=== PATIENT | male | born 1955 | race Caucasian/White ===

== ENCOUNTER 2018-12-19 20:48 | Inpatient (IN) | payer MEDICARE, MEDICAID ==
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
[2018-12-20 00:44] VITALS: BP 114/64
[2018-12-20] MEDS: Sodium Chloride 0.9% 1,000 ML IV SCH (01:10)
[2018-12-20 05:49] LABS: % BASOPHILS 0.8 % (0.0-2.0); % EOSINOPHILS 4.5 % (0.0-5.0); % LYMPHOCYTES 23.9 % (20.0-50.0); % MONOCYTES 8.9 % (2.0-10.0); % NEUTROPHILS 61.9 % (40.0-80.0); BASOPHILE ABSOLUTE 0.1 Th/cumm (0-0.2); EOSINOPHILE ABSOLUTE 0.4 Th/cmm (0.1-0.4); HEMATOCRIT 36.3 % (41.0-60); HEMOGLOBIN 12.2 gm/dL (12-16); LYMPHOCYTE ABSOLUTE 2.2 Th/cmm (1.5-3.0); MEAN CELL VOLUME 96.1 fl (80-99); MEAN CORPUSCULAR HEMOGLOBIN 32.2 pg (26.0-30.0); MEAN CORPUSCULAR HGB CONC 33.5 pg (28.0-36.0); MEAN PLATELET VOLUME 8.1 fl; MONOCYTE ABSOLUTE 0.8 Th/cmm (0.3-1.0); NEUTROPHILE ABSOLUTE 5.9 Th/cmm (1.8-8.0); PLATELET COUNT 329 Th/cmm (150-400); RED BLOOD COUNT 3.78 Mil/cmm (4.30-5.70); WHITE BLOOD COUNT 9.4 Th/cmm (4.8-10.8)
[2018-12-20 06:08] LABS: ANION GAP 12.2 (7.0-16.0); BUN - UREA NITROGEN 14 mg/dL (7-25); CALCIUM SERUM 8.4 mg/dL (8.6-10.3); CARBON DIOXIDE 25.6 mEq/L (21.0-31.0); CHLORIDE 102 mEq/L (98-107); CREATININE - SERUM 0.6 mg/dL (0.7-1.3); GFR AFRICAN-AMERICAN > 60.0 ml/min (>90); GFR NON AFRICAN-AMERICAN > 60.0 ml/min; GLUCOSE 130 mg/dL (70-105); POTASSIUM SERUM 3.8 mEq/L (3.5-5.1); SODIUM SERUM 136 mEq/L (136-145)
[2018-12-20] MEDS ORDERED: INSULIN ASPART SLIDING SCALE 100 UNITS/ML UNIT SUBQ SCH (07:30)
--- NOTE | 2018-12-20 09:45 | Diagnostic Imaging Report ---
Right shoulder (2 views) HISTORY: Pain, trauma No acute abnormalities. No fractures. No dislocation. Hypertrophic degenerative changes noted about the acromioclavicular joint. IMPRESSION: 1. Somewhat limited exam due to difficulty in patient positioning and cooperation 2. No definite acute abnormalities 3. Degenerative changes
[2018-12-20] MEDS ORDERED: Fleet Enema 135 mL RC PRN (10:16)
[2018-12-20] MEDS ORDERED: Magnesium Hydroxide (MOM) 30 mL UDC PO PRN (10:16)
[2018-12-20] MEDS ORDERED: INSULIN HUMAN REGULAR 100 UNITS/ML UNIT SUBQ SCH (11:30)
[2018-12-20] MEDS: APAP/Codeine 300 mg/30 mg Tab PO PRN ×2 (11:33→20:29)
[2018-12-20] MEDS ORDERED: VTE Chemical Prophylaxis Screen/Admission MC PRN (12:34)
[2018-12-20] MEDS: INSULIN LISPRO 100 UNIT/ML VIAL SUBQ SCH ×2 (12:43→17:22)
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
[2018-12-20] MEDS ORDERED: FLURANDRENOLIDE TP SCH (17:00)
[2018-12-20] MEDS ORDERED: CICLOPIROX 0.77% TP SCH (17:00)
[2018-12-20] MEDS: Insulin Glargine 100 units/ml 10ml Vial SUBQ SCH (17:18)
[2018-12-20] MEDS: Atorvastatin Calcium 10 MG TAB PO SCH (20:29)
[2018-12-20] MEDS ORDERED: GLUCAGON HCl 1 MG KIT IM PRN (20:47)
[2018-12-20] MEDS ORDERED: Dextrose 50% 50 mL Abboject IVP PRN (20:47)
[2018-12-20] MEDS: INSULIN LISPRO SLIDING SCALE 100 UNITS/ML UNIT SUBQ SCH (21:00)
[2018-12-21] MEDS: APAP/Codeine 300 mg/30 mg Tab PO PRN (04:43)
[2018-12-21 06:41] LABS: % BASOPHILS 0.7 % (0.0-2.0); % EOSINOPHILS 4.4 % (0.0-5.0); % LYMPHOCYTES 20.6 % (20.0-50.0); % MONOCYTES 6.5 % (2.0-10.0); % NEUTROPHILS 67.8 % (40.0-80.0); BASOPHILE ABSOLUTE 0.1 Th/cumm (0-0.2); EOSINOPHILE ABSOLUTE 0.3 Th/cmm (0.1-0.4); HEMATOCRIT 37.3 % (41.0-60); HEMOGLOBIN 12.2 gm/dL (12-16); LYMPHOCYTE ABSOLUTE 1.6 Th/cmm (1.5-3.0); MEAN CELL VOLUME 97.8 fl (80-99); MEAN CORPUSCULAR HEMOGLOBIN 31.9 pg (26.0-30.0); MEAN CORPUSCULAR HGB CONC 32.6 pg (28.0-36.0); MEAN PLATELET VOLUME 8.3 fl; MONOCYTE ABSOLUTE 0.5 Th/cmm (0.3-1.0); NEUTROPHILE ABSOLUTE 5.4 Th/cmm (1.8-8.0); PLATELET COUNT 343 Th/cmm (150-400); RED BLOOD COUNT 3.82 Mil/cmm (4.30-5.70); RED CELL DISTRIBUTION WIDTH 13.1 % (11.5-20.0); WHITE BLOOD COUNT 7.9 Th/cmm (4.8-10.8)
[2018-12-21 07:01] LABS: ALB/GLOB RATIO 0.9 (1.0-1.8); ALBUMIN 3.1 gm/dL (4.2-5.5); ALKALINE PHOSPHATASE 135 U/L (34-104); ANION GAP 12.1 (7.0-16.0); BILIRUBIN,TOTAL 0.6 mg/dL (0.3-1.0); BUN - UREA NITROGEN 16 mg/dL (7-25); CALCIUM SERUM 8.4 mg/dL (8.6-10.3); CARBON DIOXIDE 25.9 mEq/L (21.0-31.0); CHLORIDE 100 mEq/L (98-107); CREATININE - SERUM 0.6 mg/dL (0.7-1.3); GFR AFRICAN-AMERICAN > 60.0 ml/min (>90); GFR NON AFRICAN-AMERICAN > 60.0 ml/min; GLUCOSE 262 mg/dL (70-105); SGOT 57 U/L (13-39); SGPT/ALT 47 U/L (7-52); SODIUM SERUM 134 mEq/L (136-145); TOTAL PROTEIN,SERUM 6.7 gm/dL (6.0-8.3)
[2018-12-21] MEDS ORDERED: Morphine Sulfate 2 mg/mL 1mL Syr IVP PRN (08:04)
[2018-12-21] MEDS: Insulin Glargine 100 units/ml 10ml Vial SUBQ SCH ×2 (08:08→17:27)
[2018-12-21] MEDS: INSULIN LISPRO SLIDING SCALE 100 UNITS/ML UNIT SUBQ SCH ×4 (08:09→21:40)
[2018-12-21] MEDS ORDERED: Non-Formulary Item 1 EA (Cranberry [Cranberry] 425 MG) PO SCH (09:00)
[2018-12-21] MEDS ORDERED: Non-Formulary Item 1 EA (Amino Acids/Protein Hydrolys [Pro-Stat Awc Liquid] 30 ML) PO SCH (09:00)
[2018-12-21] MEDS: Aspirin 81mg Chewable Tab PO SCH (09:00)
[2018-12-21] MEDS: Oxybutynin Chloride 5 mg ER Tab PO SCH (09:00)
[2018-12-21] MEDS: Multivitamin w/ Minerals Tab PO SCH (09:01)
[2018-12-21] MEDS: Sodium Chloride 0.9% 1,000 ML IV SCH (09:19)
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
--- NOTE | 2018-12-21 11:34 | General Progress Note ---
Subjective - Review of Systems Subjective: Consult dictated. Pain multiple joionts - arthritis Objective - Results Result Diagrams: 12/21/18 05:55 12/21/18 05:55 Recent Labs: Laboratory Last Values WBC 7.9 Th/cmm (4.8-10.8) 12/21/18 05:55 RBC 3.82 Mil/cmm (4.30-5.70) L 12/21/18 05:55 Hgb 12.2 gm/dL (12-16) 12/21/18 05:55 Hct 37.3 % (41.0-60) L 12/21/18 05:55 MCV 97.8 fl (80-99) 12/21/18 05:55 MCH 31.9 pg (26.0-30.0) H 12/21/18 05:55 MCHC Differential 32.6 pg (28.0-36.0) 12/21/18 05:55 RDW 13.1 % (11.5-20.0) 12/21/18 05:55 Plt Count 343 Th/cmm (150-400) 12/21/18 05:55 MPV 8.3 fl 12/21/18 05:55 Neutrophils % 67.8 % (40.0-80.0) 12/21/18 05:55 Lymphocytes % 20.6 % (20.0-50.0) 12/21/18 05:55 Monocytes % 6.5 % (2.0-10.0) 12/21/18 05:55 Eosinophils % 4.4 % (0.0-5.0) 12/21/18 05:55 Basophils % 0.7 % (0.0-2.0) 12/21/18 05:55 Sodium 134 mEq/L (136-145) L 12/21/18 05:55 Potassium 4.0 mEq/L (3.5-5.1) 12/21/18 05:55 Chloride 100 mEq/L (98-107) 12/21/18 05:55 Carbon Dioxide 25.9 mEq/L (21.0-31.0) 12/21/18 05:55 Anion Gap 12.1 (7.0-16.0) 12/21/18 05:55 BUN 16 mg/dL (7-25) 12/21/18 05:55 Creatinine 0.6 mg/dL (0.7-1.3) L 12/21/18 05:55 Est GFR ( Amer) > 60.0 ml/min (>90) 12/21/18 05:55 Est GFR (Non-Af Amer) > 60.0 ml/min 12/21/18 05:55 BUN/Creatinine Ratio 26.7 12/21/18 05:55 Glucose 262 mg/dL (70-105) H 12/21/18 05:55 POC Glucose 244 MG/DL (70 - 105) H 12/21/18 07:37 Calcium 8.4 mg/dL (8.6-10.3) L 12/21/18 05:55 Total Bilirubin 0.6 mg/dL (0.3-1.0) 12/21/18 05:55 AST 57 U/L (13-39) H 12/21/18 05:55 ALT 47 U/L (7-52) 12/21/18 05:55 Alkaline Phosphatase 135 U/L (34-104) H 12/21/18 05:55 Total Protein 6.7 gm/dL (6.0-8.3) 12/21/18 05:55 Albumin 3.1 gm/dL (4.2-5.5) L 12/21/18 05:55 Globulin 3.6 gm/dL 12/21/18 05:55 Albumin/Globulin Ratio 0.9 (1.0-1.8) L 12/21/18 05:55 - Physical Exam Vitals and I&O: Vital Signs Temp 98.0 F 12/21/18 08:00 Pulse 81 12/21/18 08:00 Resp 18 12/21/18 08:00 BP 122/71 12/21/18 08:00 Pulse Ox 96 12/21/18 08:00 Intake & Output 12/20/18 12/21/18 12/21/18 18:59 06:59 18:59 Intake Total 652 1000 Output Total 650 Balance 652 350 Weight (lbs) 141.067 kg 141.067 kg Intake: Intake, IV Amount 1000 Sodium Chloride 0.9% 1, 1000 000 ml @ 50 mls/hr IV . Q20H [facility] Rx#:[id number] Oral 652 Output: Urine 650 Other: Weight Source Bedscale Bedscale Active Medications: Current Medications Acetaminophen (Tylenol) 650 mg PO Q4HR PRN PRN Reason: Pain or Fever >101 Stop: 02/18/19 10:15 Acetaminophen/Codeine Phosphate (Tylenol W/Codeine #3) 1 tab PO Q4H PRN PRN Reason: Pain (Severe) Stop: 02/18/19 10:15 Last Admin: 12/21/18 04:43 Dose: 1 tab Ascorbic Acid (Vitamin C) 500 mg PO DAILY [facility] Stop: 02/19/19 08:59 Last Admin: 12/21/18 09:00 Dose: 500 mg Aspirin (Aspirin Chewable) 81 mg PO DAILY [facility] Stop: 02/19/19 08:59 Last Admin: 12/21/18 09:00 Dose: 81 mg Atorvastatin Calcium (Lipitor) 20 mg PO HS [facility] Stop: 02/18/19 20:59 Last Admin: 12/20/18 20:29 Dose: 20 mg Baclofen (Lioresal) 20 mg PO Q12H [facility] Stop: 02/18/19 10:29 Last Admin: 12/21/18 10:35 Dose: 20 mg Bisacodyl (Dulcolax 10 Mg Supp) 10 mg RC Q96H PRN PRN Reason: Constipation Stop: 02/18/19 10:15 Dextrose (Glutose 40%) 30 gm PO PRN PRN PRN Reason: BS<70 Stop: 02/18/19 10:15 Dextrose (D50w) 50 ml IVP PRN PRN PRN Reason: Blood Glucose less than 70 Stop: 02/18/19 20:46 Dextrose (Glutose 40%) 18.75 gm PO PRN PRN PRN Reason: Blood Glucose less than 70 Stop: 02/18/19 20:46 Gabapentin (Neurontin) 300 mg PO TID [facility] Stop: 02/18/19 13:59 Last Admin: 12/21/18 09:00 Dose: 300 mg Glipizide (Glucotrol) 10 mg PO BIDAC [facility] Stop: 02/18/19 16:59 Last Admin: 12/21/18 09:01 Dose: 10 mg Glucagon (Glucagen) 1 mg IM PRN PRN PRN Reason: Blood Glucose less than 70 Stop: 02/18/19 20:46 Heparin Sodium (Porcine) (Heparin) 5,000 units SUBQ Q12H [facility] Stop: 02/18/19 20:59 Last Admin: 12/21/18 09:01 Dose: 5,000 units Sodium Chloride (Nacl 0.9%) 1,000 mls @ 50 mls/hr IV .Q20H [facility] Stop: 02/17/19 22:59 Last Admin: 12/21/18 09:19 Dose: 50 mls/hr Insulin Glargine (Lantus Insulin) 45 units SUBQ BIDAC [facility] Stop: 02/18/19 16:29 Last Admin: 12/21/18 08:08 Dose: 45 units Insulin Human Lispro (Humalog Insulin Sliding Scale) 0 units SUBQ ACHS [facility]; Protocol Stop: 02/18/19 20:59 Last Admin: 12/21/18 08:09 Dose: 4 units Magnesium Hydroxide (Milk Of Magnesia) 30 ml PO Q72H PRN PRN Reason: Constipation Stop: 02/18/19 10:15 Metformin HCl (Glucophage) 1,000 mg PO BIDWM [facility] Stop: 02/18/19 17:59 Last Admin: 12/21/18 09:03 Dose: 1,000 mg Miscellaneous (Vte Chemical Prophylaxis Screen/ Admission) 1 ea [facility] PRN PRN PRN Reason: PROTOCOL Stop: 02/18/19 12:33 Morphine Sulfate (Morphine) 1 mg IVP Q4HR PRN PRN Reason: Moderate Pain Stop: 02/19/19 08:03 Morphine Sulfate (Morphine) 2 mg IVP Q4HR PRN PRN Reason: Severe Pain Stop: 02/19/19 08:04 Oxybutynin Chloride (Ditropan Xl) 5 mg PO DAILY [facility] Stop: 02/19/19 08:59 Last Admin: 12/21/18 09:00 Dose: 5 mg Sodium Phosphate (Fleet Enema) 135 ml RC Q96H PRN PRN Reason: Constipation Stop: 02/18/19 10:15 Zinc Sulfate (Zinc Sulfate) 220 mg PO DAILY [facility] Stop: 02/19/19 08:59 Last Admin: 12/21/18 09:00 Dose: 220 mg - Procedures Procedures: Procedures Procedure Code Date OTHER GROUP THERAPY 94.44 05/07/13 Nutritional Asmnt/Malnutr-PDOC - Dietary Evaluation Malnutrition Findings (Please click <Entered> for more info): Nutritional Asmnt/Malnutrition Start: 12/20/18 14: 59 Text: Status: Complete Freq: Protocol: Document 12/20/18 15:00 LCNICOG (Rec: 12/20/18 15:31 [email or web address]) Nutritional Asmnt/Malnutrition Patient General Information Nutritional Screening High Risk Consult Diagnosis sprained right shoulder Pertinent Medical Hx/Surgical Hx HTN, DM, dyslipidemia, mild metnal disability, UTI, neuromuscular bladder dysfunction, chrinic pain syndrome, laparotomy, right wrist for crush injury. Subjective Information Consult received for glucose 204 at admission. Pt seen sitting up in bed for lunch at time of visit, alert. Pt stated he has good appetite. Food preference provided to RD . Pt has been following diabetic diet, would like to take CCHO diet. Current Diet Order/ Nutrition Support low sodium Pertinent Medications vit C, lipitor, glucotrol, novolog, herparin, lantus, humalog, glucophage, nacl 0.9% , zinc Pertinent Labs 12/20 Cr 0.6, glucose 130, POC 127, Ca 8.4 12/19 POC 204 Nutritional Hx/Data Height 1.8 m Height (Calculated Centimeters) 180.3 Current Weight (lbs) 150.139 kg Weight (Calculated Kilograms) 150.1 Weight (Calculated Grams) 240977.1 [place] Body Weight 172 Body Mass Index (BMI) 46.1 Weight Status Morbidly Obese GI Symptoms GI Symptoms None Last BM not indicated Difficult in: None Skin Integrity/Comment: intact Estimated Nutritional Goals BEE in Kcals: Adj wt of IBW Calories/Kcals/Kg 20-25 Kcals Calculated 0430-8496 Protein: Adj wt of IBW Protein g/k.8-1 Protein Calculated 75-94 Fluid: ml 1880-2350ml (1ml/kcal) Nutritional Problem 1. Problem Problem altered nutrition related labs Etiology hyperglycemia Signs/Symptoms: glucose 130, POC 127-204 Malnutrition Alert Is there a minimum of two criteria No selected? Query Text:Check all the applicable criteria. A minimum of two criteria are recommended for diagnosis of either severe or non-severe malnutrition. Malnutrition Related to Morbid Obesity Malnutrition related to morbid obesity No Intervention/Recommendation Comments 1. Continue with low sodium diet as ordered. Recommend to add CCHO-60gm diet. ERNESTO Miles notified. OK to have double protein and veggies. 2. Monitor PO intake, wt, labs and skin integrity 3. F/U as moderate risk in 3-5 days Expected Outcomes/Goals Expected Outcomes/Goals 1. PO intake to meet at least 75% of nutritional needs. 2. Wt stability, skin to remain intact, labs to approach WNL.
[2018-12-21] MEDS: Morphine Sulfate 2 mg/mL 1mL Syr IVP PRN (16:13)
[2018-12-21] MEDS: Atorvastatin Calcium 10 MG TAB PO SCH (21:41)
[2018-12-22] MEDS: Morphine Sulfate 2 mg/mL 1mL Syr IVP PRN ×5 (00:27→21:24)
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
[2018-12-22] MEDS ORDERED: Morphine Sulfate 2 mg/mL 1mL Syr ONE (06:19)
[2018-12-22] MEDS: INSULIN LISPRO SLIDING SCALE 100 UNITS/ML UNIT SUBQ SCH ×4 (06:57→21:23)
[2018-12-22] MEDS: Insulin Glargine 100 units/ml 10ml Vial SUBQ SCH ×2 (06:57→17:00)
[2018-12-22] MEDS: Aspirin 81mg Chewable Tab PO SCH (08:21)
[2018-12-22] MEDS: Oxybutynin Chloride 5 mg ER Tab PO SCH (08:22)
[2018-12-22] MEDS: Multivitamin w/ Minerals Tab PO SCH (08:22)
[2018-12-22] MEDS: APAP/Codeine 300 mg/30 mg Tab PO PRN (10:30)
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
[2018-12-22] MEDS: Atorvastatin Calcium 10 MG TAB PO SCH (21:24)
[2018-12-23] MEDS: Morphine Sulfate 2 mg/mL 1mL Syr IVP PRN (06:53)
[2018-12-23] MEDS: Sodium Chloride 0.9% 1,000 ML IV SCH (06:54)
[2018-12-23] MEDS: INSULIN LISPRO SLIDING SCALE 100 UNITS/ML UNIT SUBQ SCH ×2 (06:56→11:55)
[2018-12-23] MEDS: Insulin Glargine 100 units/ml 10ml Vial SUBQ SCH (06:56)
--- NOTE | 2018-12-23 08:46 | Diagnostic Imaging Report ---
Exam: Left knee joint HISTORY: Pain Findings: Portable examination left knee joint reviewed demonstrates satisfactory position and orientation of total left knee prosthesis. There is no evidence of fracture dislocation subluxation. IMPRESSION: Satisfactory position and orientation of the left knee prosthesis. Vascular calcifications noted.
--- NOTE | 2018-12-23 08:48 | Diagnostic Imaging Report ---
Exam: Right knee joint. HISTORY: Pain Findings: Portable examination of the right knee joint and 1742 reviewed, the study demonstrates normal position and orientation of total right knee prosthesis. There is no evidence of fracture dislocation. The vascular calcifications identified. IMPRESSION satisfactory position and orientation total right knee prosthesis.
[2018-12-23] MEDS: Multivitamin w/ Minerals Tab PO SCH (09:44)
[2018-12-23] MEDS: Oxybutynin Chloride 5 mg ER Tab PO SCH (09:44)
[2018-12-23] MEDS: Aspirin 81mg Chewable Tab PO SCH (09:44)
--- NOTE | 2018-12-23 10:36 | Diagnostic Imaging Report ---
CT scan right shoulder HISTORY: Pain Total DLP equals 498 CTDI equals 17.4 Axial sections were obtained through the right shoulder region. Additional sagittal and coronal reformatted images are provided. The exam demonstrates degenerative changes with narrowing of the glenohumeral joint space. Hypertrophic bone formation noted off the medial aspect of the middle head. Small spur formation noted about the glenoid process. Additional hypertrophic degenerative changes noted about the acromioclavicular joint. No dislocation. No acute fractures are seen. IMPRESSION: 1. No acute abnormalities 2. Moderate to severe degenerative joint disease
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
== END 2018-12-23 17:12 | DRG 553 ==
LOC: ER 20:48 → MSI 22:58
PROVIDERS: ADMIT Internal Medicine; ATTEND Internal Medicine
DX: M19.011 Primary osteoarthritis, right shoulder (principal); E11.00 Type 2 diabetes mellitus with hyperosmolarity without nonketotic hyperglycemic-hyperosmolar coma (NKHHC); E11.65 Type 2 diabetes mellitus with hyperglycemia; I10 Essential (primary) hypertension; E78.5 Hyperlipidemia, unspecified; F70 Mild intellectual disabilities; G89.4 Chronic pain syndrome; M25.811 Other specified joint disorders, right shoulder; N31.9 Neuromuscular dysfunction of bladder, unspecified; Z79.4 Long term (current) use of insulin; Z88.0 Allergy status to penicillin; Z91.013 Allergy to seafood; Z91.018 Allergy to other foods
CPT/HCPCS: 36415-UA; 73030-TC-RT; 73200-TC-RT; 73560-TC-LT; 73560-TC-RT; 80048-TC; 80053-TC; 82948-90; 83036-90; 85025-TC; J1644; J1815; J1885; J2270; J7030; Z7610

== ENCOUNTER 2019-05-17 03:52 | Inpatient (IN) | payer MEDICARE, MEDICAID ==
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
[2019-05-17 04:53] LABS: URINE SOURCE CLEAN C
[2019-05-17 04:57] LABS: % BASOPHILS 0.4 % (0.0-2.0); % EOSINOPHILS 5.4 % (0.0-5.0); % LYMPHOCYTES 16.1 % (20.0-50.0); % MONOCYTES 6.2 % (2.0-10.0); % NEUTROPHILS 71.9 % (40.0-80.0); EOSINOPHILE ABSOLUTE 0.6 Th/cmm (0.1-0.4); HEMATOCRIT 39.7 % (41.0-60); HEMOGLOBIN 13.1 gm/dL (12-16); LYMPHOCYTE ABSOLUTE 1.7 Th/cmm (1.5-3.0); MEAN CELL VOLUME 97.9 fl (80-99); MEAN CORPUSCULAR HEMOGLOBIN 32.1 pg (26.0-30.0); MEAN CORPUSCULAR HGB CONC 32.8 pg (28.0-36.0); MONOCYTE ABSOLUTE 0.7 Th/cmm (0.3-1.0); NEUTROPHILE ABSOLUTE 7.8 Th/cmm (1.8-8.0); PLATELET COUNT 325 Th/cmm (150-400); RED BLOOD COUNT 4.06 Mil/cmm (4.30-5.70); RED CELL DISTRIBUTION WIDTH 12.7 % (11.5-20.0); WHITE BLOOD COUNT 10.8 Th/cmm (4.8-10.8)
[2019-05-17 05:02] LABS: URINE BILIRUBIN NEGATIVE (NEGATIVE); URINE BLOOD LARGE (NEGATIVE); URINE GLUCOSE (UA) NEGATIVE (NEGATIVE); URINE KETONE NEGATIVE (NEGATIVE); URINE LEUKOCYTE ESTERASE LARGE (NEGATIVE); URINE MICROSCOPIC INDICATED? YES; URINE NITRATE NEGATIVE (NEGATIVE); URINE PH 8.5 (4.6 - 8.0); URINE PROTEIN 100 mg/dL (NEGATIVE); URINE UROBILINOGEN 0.2 E.U./dL (0.2 - 1.0)
[2019-05-17 05:05] LABS: URINE CLARITY TURBID (CLEAR); URINE COLOR RED
[2019-05-17 05:12] LABS: ALB/GLOB RATIO 0.9 (1.0-1.8); ALBUMIN 3.3 gm/dL (4.2-5.5); ALKALINE PHOSPHATASE 70 U/L (34-104); ANION GAP 10.9 (7.0-16.0); BILIRUBIN,TOTAL 0.3 mg/dL (0.3-1.0); BUN - UREA NITROGEN 16 mg/dL (7-25); CALCIUM SERUM 9.1 mg/dL (8.6-10.3); CARBON DIOXIDE 28.2 mEq/L (21.0-31.0); CHLORIDE 96 mEq/L (98-107); CREATININE - SERUM 0.5 mg/dL (0.7-1.3); GFR AFRICAN-AMERICAN > 60.0 ml/min (>90); GFR NON AFRICAN-AMERICAN > 60.0 ml/min; GLUCOSE 189 mg/dL (70-105); POTASSIUM SERUM 4.1 mEq/L (3.5-5.1); SGOT 8 U/L (13-39); SGPT/ALT 13 U/L (7-52); SODIUM SERUM 131 mEq/L (136-145); TOTAL PROTEIN,SERUM 7.1 gm/dL (6.0-8.3)
[2019-05-17 05:16] LABS: URINE AMORPHOUS SEDIMENT MODERATE PHOSPHATES (NONE SEEN); URINE BACTERIA MANY /hpf (NONE SEEN); URINE EPITHELIAL CELLS NONE SEEN /lpf (FEW); URINE TRIPLE PHOSPHATE CRYSTAL FEW /hpf (FEW)
[2019-05-17] MEDS ORDERED: Hydrocodone/APAP 5mg/325mg Tab PO PRN (05:50)
[2019-05-17] MEDS ORDERED: Sodium Chloride 0.9% 1,000 ML IV SCH (05:52)
[2019-05-17] MEDS ORDERED: GLUCAGON HCl 1 MG KIT IM PRN (05:53)
[2019-05-17] MEDS ORDERED: Dextrose 50% 50 mL Abboject IVP PRN (05:53)
[2019-05-17] MEDS ORDERED: Levofloxacin 500mg/100mL 500 MG/100 ML BAG IV SCH (06:00)
[2019-05-17] MEDS ORDERED: Hydrocodone/APAP 5mg/325mg Tab PO ONE (06:05)
[2019-05-17] MEDS ORDERED: Hydrocodone/APAP 5mg/325mg Tab ONE (06:09)
[2019-05-17] MEDS ORDERED: Levofloxacin 500mg/100mL 500 MG/100 ML BAG IV ONE (06:10)
[2019-05-17] MEDS: INSULIN LISPRO SLIDING SCALE 100 UNITS/ML UNIT SUBQ SCH ×4 (07:41→21:22)
[2019-05-17] MEDS ORDERED: INSULIN LISPRO 100 UNIT/ML VIAL SUBQ ONE (07:43)
[2019-05-17] MEDS ORDERED: VTE Chemical Prophylaxis Screen/Admission MC PRN (14:10)
[2019-05-17 14:34] VITALS: BP 128/69
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
[2019-05-18 05:02] LABS: % BASOPHILS 0.4 % (0.0-2.0); % EOSINOPHILS 6.2 % (0.0-5.0); % LYMPHOCYTES 24.2 % (20.0-50.0); % NEUTROPHILS 62.2 % (40.0-80.0); EOSINOPHILE ABSOLUTE 0.5 Th/cmm (0.1-0.4); HEMATOCRIT 38.5 % (41.0-60); HEMOGLOBIN 12.9 gm/dL (12-16); LYMPHOCYTE ABSOLUTE 2.1 Th/cmm (1.5-3.0); MEAN CORPUSCULAR HEMOGLOBIN 32.5 pg (26.0-30.0); MEAN CORPUSCULAR HGB CONC 33.5 pg (28.0-36.0); MONOCYTE ABSOLUTE 0.6 Th/cmm (0.3-1.0); NEUTROPHILE ABSOLUTE 5.4 Th/cmm (1.8-8.0); PLATELET COUNT 345 Th/cmm (150-400); RED BLOOD COUNT 3.97 Mil/cmm (4.30-5.70); RED CELL DISTRIBUTION WIDTH 12.4 % (11.5-20.0); WHITE BLOOD COUNT 8.6 Th/cmm (4.8-10.8)
[2019-05-18 05:42] LABS: BUN - UREA NITROGEN 13 mg/dL (7-25); CARBON DIOXIDE 25.8 mEq/L (21.0-31.0); CHLORIDE 97 mEq/L (98-107); CREATININE - SERUM 0.5 mg/dL (0.7-1.3); GFR AFRICAN-AMERICAN > 60.0 ml/min (>90); GFR NON AFRICAN-AMERICAN > 60.0 ml/min; GLUCOSE 256 mg/dL (70-105); POTASSIUM SERUM 3.8 mEq/L (3.5-5.1); SODIUM SERUM 131 mEq/L (136-145)
[2019-05-18] MEDS ORDERED: Levofloxacin 500mg/100mL 500 MG/100 ML BAG IV SCH (06:00)
[2019-05-18] MEDS ORDERED: Fleet Enema 135 mL RC PRN (06:47)
[2019-05-18] MEDS ORDERED: APAP/Codeine 300 mg/30 mg Tab PO PRN (06:47)
[2019-05-18] MEDS ORDERED: DEXTRAN EACH EYE PRN (06:47)
[2019-05-18] MEDS ORDERED: HYPROMELLOSE EACH EYE PRN (06:47)
[2019-05-18] MEDS ORDERED: Magnesium Hydroxide (MOM) 30 mL UDC PO PRN (06:47)
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
[2019-05-18] MEDS: INSULIN LISPRO SLIDING SCALE 100 UNITS/ML UNIT SUBQ SCH ×3 (06:53→21:49)
[2019-05-18] MEDS ORDERED: INSULIN DETEMIR 50 UNIT SQ SCH (07:30)
[2019-05-18] MEDS ORDERED: INSULIN ASPART SLIDING SCALE 100 UNITS/ML UNIT SUBQ SCH (07:30)
[2019-05-18] MEDS ORDERED: INSULIN ASPART RECOMBINANT SUBQ SCH (07:30)
[2019-05-18 08:08] LABS: A1C 7.9 % (4.8-5.6)
[2019-05-18] MEDS ORDERED: Polyvinyl Alcohol Ophth Soln 15 mL Bottle EACH EYE PRN (08:21)
[2019-05-18] MEDS ORDERED: Non-Formulary Item 1 EA (Amino Acids/Protein Hydrolys [Pro-Stat Sugar Free Liquid] 30 ML) PO SCH (09:00)
[2019-05-18] MEDS ORDERED: Non-Formulary Item 1 EA (Metformin Hcl [Metformin Hcl] 1,000 MG) PO SCH (09:00)
[2019-05-18] MEDS ORDERED: Non-Formulary Item 1 EA (Cranberry [Cranberry] 425 MG) PO SCH (09:00)
[2019-05-18] MEDS ORDERED: Non-Formulary Item 1 EA (Glipizide [Glipizide] 10 MG) PO SCH (09:00)
[2019-05-18] MEDS: Aspirin 81mg Chewable Tab PO SCH (09:19)
[2019-05-18] MEDS: Multivitamin w/ Minerals Tab PO SCH (09:19)
[2019-05-18] MEDS: Oxybutynin Chloride 5 mg ER Tab PO SCH (09:20)
[2019-05-18] MEDS: OXICONAZOLE NITRATE TP SCH ×2 (11:11→16:48)
[2019-05-18] MEDS: CICLOPIROX 0.77% TP SCH ×2 (11:12→16:48)
[2019-05-18] MEDS ORDERED: INSULIN ASPART, RECOMBINANT 100 UNITS/ML SUBQ SCH (12:00)
[2019-05-18] MEDS ORDERED: INSULIN LISPRO 100 UNIT/ML VIAL SUBQ SCH (17:00)
[2019-05-18] MEDS: Insulin Glargine 100 units/ml 10ml Vial SUBQ SCH (17:02)
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
[2019-05-18] MEDS ORDERED: Atorvastatin Calcium 10 MG TAB PO SCH (21:00)
[2019-05-18] MEDS ORDERED: Non-Formulary Item 1 EA (Melatonin [Melatonin] 3 MG) PO SCH (21:00)
[2019-05-18] MEDS ORDERED: Non-Formulary Item 1 EA (Atorvastatin Calcium [Lipitor] 20 MG) PO SCH (21:00)
--- NOTE | 2019-05-19 00:34 | Progress Notes ---
DATE: UROLOGY PROGRESS NOTE SUBJECTIVE: The patient is doing much better after the suprapubic tube was changed. There is no more leakage and output is clear. Output is of 3 liters. He has no pain or fever. OBJECTIVE: On exam, he is afebrile and his blood pressure is maintained quite well. He is tolerating diet and taking in more than 75% of his meals. His abdomen is very obese, but soft and nontender, nondistended. Suprapubic site is clean and uninfected and no leakage. The urine is clear. Extremities, trace edema. LABORATORY DATA: White count remains normal in the 8000 range. Sodium was slightly low at 131. Creatinine is normal. Hemoglobin is stable. IMPRESSION: 1. Neurogenic bladder with suprapubic catheter changed yesterday for leakage and some blood and hematuria. All of this has resolved and he is doing much better. 2. Assumed urinary tract infection. I am not convinced the patient has UTI; and therefore, I would avoid giving parenteral antibiotics as much as possible unless his white count goes higher or he develops a fever. 3. Diabetes. Last sugars were in the range of 220. 4. Hypertension. 5. Obesity. 6. Paraplegia, no major change. JOB# [id number]
[2019-05-19] MEDS: Insulin Glargine 100 units/ml 10ml Vial SUBQ SCH (06:32)
[2019-05-19] MEDS: INSULIN LISPRO SLIDING SCALE 100 UNITS/ML UNIT SUBQ SCH ×2 (09:03→13:02)
[2019-05-19] MEDS: Aspirin 81mg Chewable Tab PO SCH (09:04)
[2019-05-19] MEDS: Multivitamin w/ Minerals Tab PO SCH (09:04)
[2019-05-19] MEDS: Oxybutynin Chloride 5 mg ER Tab PO SCH (09:10)
== END 2019-05-19 15:40 | DRG 699 ==
LOC: ER 03:52 → MSI 10:43
PROVIDERS: ADMIT Internal Medicine Infectious Disease; ATTEND Internal Medicine Infectious Disease
DX: T83.038A Leakage of other urinary catheter, initial encounter (principal); N39.0 Urinary tract infection, site not specified; G82.20 Paraplegia, unspecified; Z68.41 Body mass index [BMI] 40.0-44.9, adult; N31.9 Neuromuscular dysfunction of bladder, unspecified; I10 Essential (primary) hypertension; E11.9 Type 2 diabetes mellitus without complications; R31.9 Hematuria, unspecified; E66.9 Obesity, unspecified; Y83.8 Other surgical procedures as the cause of abnormal reaction of the patient, or of later complication, without mention of misadventure at the time of the procedure; Y92.89 Other specified places as the place of occurrence of the external cause; Z88.0 Allergy status to penicillin; Z91.018 Allergy to other foods
CPT/HCPCS: 36415-UA; 80048-TC; 80053-TC; 81001-TC; 82948-90; 83036-90; 85025-TC; 87086-90; 94760; A4217; J1815; J1956; J7030; Z7610